=== PATIENT | male | born 1965 | race African-American/Black ===

== ENCOUNTER → 2021-12-31 | Day surgery (SDC) | payer OTHER ==
[~2021-12-31] MED LIST: ACETAMINOPHEN INJECTION 100 ML IVPB ONE; DEXMEDETOMIDINE HCL 200 MCG/2 ML IVPB ONE; KETOROLAC TROMETHAMINE 30 MG/1 ML VIAL ONE; LIDOCAINE HCL/PF 2% SDV 5ML VIAL ONE; PROPOFOL 20 ML ONE; ceFAZolin SODIUM 1 GM VIAL ONE
== END | disposition home or self-care (01) ==
LOC: JASU-SURG 04:33
PROVIDERS: ATTEND Urology
DX: Z53.8 Procedure and treatment not carried out for other reasons (principal)

== ENCOUNTER 2022-02-11 04:07 | Day surgery (SDC) | payer OTHER ==
[2022-02-10 09:52] VITALS: BMI 34.5
[2022-02-11] MEDS ORDERED: ONDANSETRON 4 MG/2 ML VIAL IVPUSH PRN (07:11)
[2022-02-11] MEDS ORDERED: PROMETHAZINE HCL 25 MG/1 ML VIAL IVPUSH PRN (07:11)
[2022-02-11] MEDS ORDERED: oxyCODONE HCL 5 MG TABLET PO PRN ×2 (07:11→09:41)
[2022-02-11] MEDS ORDERED: LACTATED RINGERS SOLUTION 1,000 ML IV SCH (07:15)
[2022-02-11] MEDS ORDERED: BUPIVACAINE HCL/PF 0.25% (2.5MG/ML) 10 ML VIAL ONE ×2 (08:08→08:40)
[2022-02-11] MEDS ORDERED: MIDAZOLAM HCL 2 MG/2 ML SINGLE DOSE VIAL ONE (08:25)
[2022-02-11] MEDS ORDERED: PROPOFOL 20 ML ONE ×2 (08:25)
[2022-02-11] MEDS ORDERED: ceFAZolin SODIUM 1 GM VIAL ONE (08:26)
[2022-02-11] MEDS ORDERED: LIDOCAINE HCL/PF 2% SDV 5ML VIAL ONE (08:26)
[2022-02-11] MEDS ORDERED: GLYCOPYRROLATE 0.2 MG/1 ML VIAL ONE (08:26)
[2022-02-11] MEDS ORDERED: SODIUM CHLORIDE 0.9% P/F 10 ML VIAL IJ ONE (08:26)
[2022-02-11] MEDS ORDERED: ceFAZolin SODIUM 1 GM VIAL IVPB ONE (08:40)
[2022-02-11] MEDS ORDERED: BUPIVACAINE HCL/PF 0.25% (2.5MG/ML) 10 ML VIAL IJ ONE (08:49)
[2022-02-11] MEDS ORDERED: DEXTROSE 5%-0.45% SALINE 1,000 ML IV SCH (09:45)
[2022-02-11 11:44] VITALS: TEMP 98.7
[2022-02-11 11:59] VITALS: PULSE 60
[2022-02-11 13:57] VITALS: BP 139/87
== END 2022-02-11 14:05 | disposition home or self-care (01) ==
LOC: JASU-SURG 04:07
PROVIDERS: ATTEND Urology
PROC: 0VB70ZZ Excision of Left Tunica Vaginalis, Open Approach (ICD-10-PCS; 2022-02-11)
PROC: 0VB60ZZ Excision of Right Tunica Vaginalis, Open Approach (ICD-10-PCS; principal; 2022-02-11 08:30)
DX: N43.3 Hydrocele, unspecified (principal)
CPT/HCPCS: 82962; 88302-TC; 94760